=== PATIENT | male | born 1965 | race African-American/Black ===

== ENCOUNTER 2022-03-08 11:51 | Emergency (ER) | payer SELFPAY ==
[~2022-03-08] VITALS: Ht 177.8 cm; Wt 95.0 kg
[2022-03-08 13:08] VITALS: BP 159/100
[2022-03-08] MEDS: KETOROLAC 60MG/2ML VIAL IM ONE (13:08)
[2022-03-08] MEDS ORDERED: IBUP-2029 MT (14:26)
[2022-03-08] MEDS ORDERED: METH-653 MT (14:26)
== END 2022-03-08 14:34 | disposition home or self-care (01) ==
LOC: ER 11:51
DX: M54.50 Low back pain, unspecified (principal); I10 Essential (primary) hypertension; V49.40XA Driver injured in collision with unspecified motor vehicles in traffic accident, initial encounter; Y93.89 Activity, other specified; Y92.89 Other specified places as the place of occurrence of the external cause; Y99.8 Other external cause status
CPT/HCPCS: 72100; 73562; 93005; 96372; 99284; J1885